=== PATIENT | male | born 1950 | race Native Hawaiian/Other Pacific Islander ===

== ENCOUNTER 2016-09-20 18:39 | Emergency (ER) | payer OTHER ==
[~2016-09-20] VITALS: Ht 175.3 cm; Wt 75.0 kg
[~2016-09-20 18:39] MED LIST: 1-ME1LIQ PO; DICY1TAB26 PO; ENAL10TA7 PO; IBUP400T20 PO; MOBI15TA PO; PANT20 PO
[2016-09-20 18:40] VITALS: BP 109/61; PULSE 93; RESP 14; TEMP 98.8; O2SAT 90
== END 2016-09-20 19:03 | disposition left against medical advice (07) ==
LOC: NED 18:39
DX: R50.9 Fever, unspecified (principal)
CPT/HCPCS: 99281

== ENCOUNTER → 2017-02-25 | Day surgery (SDC) | payer OTHER ==
[~2017-02-25] MED LIST changes: +BUPIVACAINE HCL PF 0.75% 30 ML VIAL ONE; +FLUMAZENIL 1 MG/10 ML VIAL IV ONE; +LACTATED RINGER'S 1000 ML INJ 1,000 ML ONE; +LIDOCAINE 1.5%/EPINEPHrine 1:200,000 PF SOLN 30 ML AMP ONE; +MIDAZOLAM HCL 5 MG/ML VIAL (1 ML) ONE; +ONDANSETRON HCL 4 MG/2 ML VIAL IV PUSH ONE; +PROPOFOL 100 MG/10 ML INJ IV ONE; +ceFAZolin 2 GM PREMIX 50 ML ONE
--- NOTE | 2017-02-27 09:41 | MP ---
cc: JARROD DORADO DATE OF SURGERY: 02/25/2017 PREOPERATIVE DIAGNOSIS Right shoulder rotator cuff tear involving the supraspinatus and subscapularis tendon, right shoulder impingement syndrome, right shoulder labral tear, right shoulder biceps tear, right shoulder osteoarthritis acromioclavicular joint. POSTOPERATIVE DIAGNOSES Right shoulder rotator cuff tear involving the supraspinatus and subscapularis tendon, right shoulder impingement syndrome, right shoulder labral tear, right shoulder biceps tear, right shoulder osteoarthritis acromioclavicular joint. PROCEDURE Right shoulder arthroscopic supraspinatus rotator cuff tendon repair, right shoulder arthroscopic subacromial decompression, right shoulder arthroscopic extensive debridement of labrum and biceps, right shoulder arthroscopic distal clavicle excision, right shoulder open subscapularis rotator cuff tendon repair. SURGEON Dr. Jarrod Dorado. GLASSWARE VERIFIER KIRSTEN Bo ANESTHESIA General with interscalene block. ESTIMATED BLOOD LOSS Less than 50 ccs. COMPLICATIONS None. IMPLANTS USED Arthrex. JUSTIFICATION This patient is a 67-year-old male who has injury of the right shoulder. He has persistence in the pain and weakness in regards to his condition and failure of conservative treatment, clinical exam as well as MRI confirmed the above-named findings. The patient was counseled as to the risks, benefits and alternatives to the above-named proposed surgical procedure and he did wish to proceed with surgery. PROCEDURE IN DETAIL A written consent was obtained. The patient was identified by name. Interscalene block anesthesia was administered to the right upper extremity. The patient was taken to the operating room and general anesthesia was administered as well as 2 grams of IV Ancef. The patient was carefully turned to the left lateral decubitus position, lateral arm roll was placed, all bony prominences and pressure points were well padded. The patient's neck was carefully monitored and kept neutral. An arthroscopic arm christianson was gently applied to the right upper extremity with 10 pounds of traction placed. The right shoulder was prepped and draped using isopropyl alcohol, Hibiclens solution and DuraPrep solution. After time-out was performed a standard anterior and posterior glenohumeral arthroscopic portal was established. The glenohumeral joint revealed evidence of extensive labral tearing along the anterior, superior and posterior portions. There was also evidence of a severe high-grade biceps tendon tear. An arthroscopic shaver was introduced from the anterior portal and extensive debridement of the glenohumeral joint was performed. The shaver was used to perform debridement of the labrum from the anterior 3 o'clock position up to superior 12 o'clock position, back down to the 9 o'clock position. A biceps tenotomy was performed. Attention was turned to the subacromial space where there was evidence of massive rotator cuff tendon tear. The tear involved the subscapularis and supraspinatus portions with significant retraction. There is evidence of impingement with bursitis. An arthroscopic shaver was introduced through the lateral portal. A subacromial decompression was performed. The shaver was used to perform extensive bursectomy. Arthroscopic Bur was used to perform an acromioplasty and the cautery device was used to release coracoacromial ligament. The Bur was used to decorticate the greater tuberosity and lesser tuberosity in preparation for rotator cuff tendon repair. At this point two Arthrex 4.75 mm bio swivel lock anchors were inserted along the medial row of the greater tuberosity. The Arthrex scorpion device was used to shuttle #2 fiber tape suture through the anterior and posterior portions as well as #2 fiber link suture along the far anterior and posterior portions of the supraspinatus tendon. An Arthrex double row speed bridge construct was then created with implantation of a anterolateral and posterolateral anchor after appropriate tensioning of sutures and insertion of lateral row anchors, the repair was probed and noted to have good stability. There was evidence of osteoarthritis of the acromioclavicular joint with significant impingement and bone spur formation. An arthroscopic Bur was introduced from subsequently a lateral portal and then an anterior portal to perform a distal clavicle resection to remove approximately 1 cm of distal clavicle. At this point the arthroscopic portion of the surgery concluded. A separate longitudinal anterior incision was made over the right shoulder. The deltopectoral interval was explored and the conjoined tendon was then retracted medially to allow exposure of the lesser tuberosity and subscapularis tendon. #2 fiber tape suture as well as a #2 fiber link suture were then placed through the subscapularis rotator cuff tendon tear and the sutures were then placed through the eyelet of an Arthrex 4.75 mm bio swivel lock anchor. The anchor was then inserted into lesser tuberosity with good purchase and fixation. The deltopectoral interval as well as the subcutaneous layer was closed with 3-0 Vicryl suture. Skin was closed with Dermabond. The arthroscopic portals were closed with 3-0 Prolene. Sterile dressings were applied. The patient was placed in sling and swath immobilizer. He tolerated the procedure well with no intraoperative complications noted. Bethel Raza, physician assistant administrator certified was present during the entire procedure to include patient positioning, the procedure itself, the medical necessity of physician assistant administrator was indicated in this case due to the complexity of the procedure, he assisted with appropriate manipulation of the arm and also manipulation of the camera. He assisted with shuttling of sutures and also implantation of suture anchors for purpose of rotator cuff tendon repair involving both the arthroscopic portion and the open portion. MD REBEKAH Ybarra/MARIAM /9:07 AM /9:24 AM
== END | disposition home or self-care (01) ==
LOC: ESDC 06:05
PROVIDERS: ATTEND Orthopaedic Surgery Sports Medicine
DX: M75.121 Complete rotator cuff tear or rupture of right shoulder, not specified as traumatic (principal); S43.491A Other sprain of right shoulder joint, initial encounter; M75.41 Impingement syndrome of right shoulder; M19.011 Primary osteoarthritis, right shoulder
CPT/HCPCS: 01610; 01630; 01991; 23412; 29823; 29824; 29826; 64417; C1713; J0690; J2250; J2405; J7120